=== PATIENT | male | born 1985 | race Caucasian/White ===

== ENCOUNTER → 2018-01-17 | Day surgery (SDC) | payer BC ==
[~2018-01-17] MED LIST: FENTANYL CITRATE/PF 100MCG/2 ML INJ ONE; MIDAZOLAM HCL 5MG/ML 2ML VIAL ONE; PROPOFOL IV EMULSION 10 MG/ML 50 ML VIAL ONE
[2018-01-17 17:15] VITALS: BP 114/71
[2018-01-17 17:26] LABS: WBC,FECAL (FECAL LACTOFERRIN) NEGATIVE (NEGATIVE)
--- NOTE | 2018-01-17 18:20 | Operative Report ---
DATE OF PROCEDURE: January 17, 2018 REFERRING PHYSICIAN: Dr. Vincent. PROCEDURE PERFORMED: Colonoscopy with polypectomy and biopsies. INDICATIONS FOR COLONOSCOPY: Chronic diarrhea, weight loss. MEDICATION: Patient was done under MAC. Please see anesthesiologist's note. PROCEDURE: With the patient in the left lateral decubitus position, a flexible fiberoptic Olympus colonoscope was inserted into the rectum with ease and advanced all the way to the cecum. Mucosa overlying the cecum appeared to be within normal limits. The ileocecal valve was intubated, and the scope was advanced into the terminal ileum. Biopsies were obtained. The scope was then withdrawn back into the colon. It was then withdrawn slowly and the mucosa overlying the ascending and the transverse, descending, sigmoid as well as the rectum revealed some patchy mild inflammatory changes, and multiple random biopsies were obtained. There were some minimal diverticular disease noted. One polyp was snared from the rectum. The scope was then retroflexed into the distal rectum. Small internal hemorrhoids were noted, none of which was actively bleeding. The scope was then straightened out and was subsequently withdrawn after securing an adequate stool specimen that were sent for the appropriate stool studies. Patient tolerated the procedure well. IMPRESSION 1. Colitis, mild patchy. 2. Diverticulosis, minimal. 3. Rectal polyp, snared. 4. Proctitis, mild. Biopsied. 5. Internal hemorrhoids, none actively bleeding. PLAN: Followup histology. Follow up stool studies. Initiate Bentyl 10 mg 1 p.o. t.i.d. Start VSL#3 one p.o. q.d. Check celiac panel. Job#: [id number] [facility] cc:DR. VINCENT
[2018-01-18 14:53] LABS: C DIFFICILE TOXIN A&B AMP PROB NEGATIVE (NEGATIVE)
[2018-01-23 06:16] LABS: ENDOMYSIAL ANTIBODIES, IGA Negative (Negative)
== END | disposition home or self-care (01) ==
LOC: OR 12:30
PROVIDERS: ATTEND Internal Medicine Gastroenterology
DX: K52.9 Noninfective gastroenteritis and colitis, unspecified (principal); K62.1 Rectal polyp; K57.30 Diverticulosis of large intestine without perforation or abscess without bleeding; K62.89 Other specified diseases of anus and rectum; K64.8 Other hemorrhoids; R63.4 Abnormal weight loss; Z87.898 Personal history of other specified conditions
CPT/HCPCS: 45380; 45385; 83516; 82784; 83630; 83993; 86256; 87045; 87177; 87328; 87493; J2250